=== PATIENT | female | born 1940 | race African-American/Black ===

== ENCOUNTER 2022-12-23 05:50 | Emergency (ER) | payer OTHER ==
[~2022-12-23] VITALS: Ht 165.1 cm; Wt 114.0 kg
[2022-12-23 05:54] VITALS: BP 0/0; PULSE 0; RESP 0; O2SAT 0
== END 2022-12-23 11:15 ==
LOC: EDBD 05:50 → ER 05:50
DX: I46.9 Cardiac arrest, cause unspecified (principal); J44.9 Chronic obstructive pulmonary disease, unspecified; F17.200 Nicotine dependence, unspecified, uncomplicated
CPT/HCPCS: 99291